=== PATIENT | female | born 1940 | race Caucasian/White ===

== ENCOUNTER 2019-04-12 08:57 | Outpatient (CLI) | payer MEDICARE ==
[2019-04-12] MEDS ORDERED: ASCO-90 PO (09:34)
[2019-04-12] MEDS ORDERED: progesterone TP (09:34)
[2019-04-12] MEDS ORDERED: GINK120C PO (09:34)
[2019-04-12] MEDS ORDERED: CHOL100011 PO (09:34)
[2019-04-12] MEDS ORDERED: CYAN50008 PO (09:34)
[2019-04-12] MEDS ORDERED: ESTR0.5T PO (09:34)
[2019-04-12] MEDS ORDERED: MULT-658 PO (09:34)
[2019-04-12] MEDS ORDERED: LATA2.5D3 EACHEYE (09:34)
[2019-04-12] MEDS ORDERED: TURM500C4 PO (09:34)
[2019-04-12] MEDS ORDERED: LOSA25TA25 PO (09:34)
[2019-04-12] MEDS ORDERED: CALC625T23 PO (09:34)
[2019-04-12 10:05] LABS: BASOPHILS # (AUTO) 0.04 x10^3/uL (0-0.1); BASOPHILS % (AUTO) 1 % (0-1); EOSINOPHILS # (AUTO) 0.07 x10^3/uL (0-0.4); EOSINOPHILS % (AUTO) 1 % (1-7); LYMPHOCYTES # (AUTO) 1.62 x10^3/uL (1-3.4); LYMPHOCYTES % (AUTO) 27 % (22-44); MD NO; MEAN CORPUSCULAR HEMOGLOBIN 32.1 pg (27.0-34.8); MEAN CORPUSCULAR HGB CONC 33.9 g/dL (32.4-35.8); MEAN CORPUSCULAR VOLUME 94.7 fL (80-100); MEAN PLATELET VOLUME 6.1 fL (7.4-10.4); MONOCYTES # (AUTO) 0.39 x10^3/uL (0.2-0.8); MONOCYTES % (AUTO) 6 % (2-9); NEUTROPHILS % (AUTO) 65 % (42-75); PLATELET COUNT 433 x10^3/uL (130-400); RED BLOOD COUNT 4.43 x10^6/uL (3.82-5.3); RED CELL DISTRIBUTION WIDTH 13.1 % (9.6-15.2)
[2019-04-12 10:13] LABS: INTERNATIONAL NORMALIZED RATIO 0.93 (0.93-1.1); PROTHROMBIN TIME 9.8 Seconds (9.6-11.5)
[2019-04-12 10:14] LABS: ANION GAP 6 mmol/L (5-15); CALCIUM 8.7 mg/dL (8.5-10.1); CHLORIDE 105 mmol/L (98-107); CREATININE 0.68 mg/dL (0.55-1.02)
[2019-04-12 10:15] LABS: ALANINE AMINOTRANSFERASE 23 U/L (12-78); ALBUMIN 3.6 g/dL (3.4-5.0)
[2019-04-12 10:17] LABS: ALKALINE PHOSPHATASE 66 U/L (45-117); BILIRUBIN,TOTAL 0.6 mg/dL (0.2-1.0); TOTAL PROTEIN 7.4 g/dL (6.4-8.2)
== END 2019-04-12 23:59 | disposition home or self-care (01) ==
LOC: STAR 08:57
PROVIDERS: ATTEND Specialist
DX: Z01.818 Encounter for other preprocedural examination (principal); N95.0 Postmenopausal bleeding
CPT/HCPCS: 36415; 71046; 80053; 85025; 85610; 85730; 93005